=== PATIENT | female | born 1995 | race Caucasian/White ===

== ENCOUNTER 2024-09-30 13:18 | Outpatient (AMB) | payer MEDICAID, SELFPAY ==
[2024-09-30 13:39] VITALS: BP 129/80; PULSE 80; RESP 18; TEMP 36.2; O2SAT 99; BMI 46.0
--- NOTE | 2024-09-30 13:39 | AMB.GYNCLNOT ---
Vital Signs 09/30/24 13:39 Height 1.7 m Height Method Stated Weight 133.526 kg Weight Measurement Method Standing Scale BMI 46.0 BP 129/80 Blood Pressure Source Automatic Cuff Blood Pressure Location Left Upper Arm Position Sitting Respiration 18 Pulse 80 Pulse Source Monitor Temp 97.2 F Temp Source Oral Pulse Oximetry (%) 99 Oxygen Delivery Method Room Air Allergies/Home Meds Allergies & Medications Allergies No Known Allergies Allergy (Verified 09/30/24 13:41) Medication Reconciliation No Known Home Medications 09/30/24 [History Confirmed 09/30/24] Intake Visit Data Collection New Patient or Established: Established Patient (seen at [facility] within 3 years) Reason for Visit:: Establish care. Patient would like a Kyleena removal and reinsertion. Seen by Clinical Staff ONLY (RN/MA): No Trouble Lineman Required: No Do You Feel Safe at Home: Yes Authorities Contacted: N/A PCP or OBGYN visit in last 3 months: Yes Hx Now: No Are you currently on any form of Control: Yes Pain Present Currently: No Pain Scale Used: Edmonds-Delarosa/Numerical Pain scale:: 0 Smoking Status Smoking Status: Never smoker Perinatal Breastfeeding Assistant history Perinatal Breastfeeding Assistant History Menstrual regularity: regular Flow: normal Monthly: No Age at menarche: 13 Menopausal: No Currently sexually active: Yes Questionnaires Covid-19 Vaccine Questionnaire Has patient been vacinated for Covid-19 Have you been vacinated for Covid-19: Yes PHQ-9 PHQ-2 Over the last 2 weeks, how often have you been bothered by any of the following problems? 1. Little interest or pleasure in doing things: not at all 2. Feeling down, depressed, or hopeless: not at all Total score: 0 PHQ-9 3. Trouble falling or staying asleep, or sleeping too much: Not at all 4. Feeling tired or having little energy: Not at all 5. Poor appetite or overeating: Not at all 6. Feeling bad about yourself - or that you are a failure or have let yourself or your family down: Not at all 7. Trouble concentrating on things, such as reading the newspaper or watching television: Not at all 8. Moving or speaking so slowly that other people could have noticed? - Or the opposite - being so fidgety or restless that you have been moving around a lot more than usual: not at all 9. Thoughts that you would be better off or of hurting yourself in some way: Not at all Total score: 0 If you checked off any problems, how difficult have these problems made it for you to do your work, take care of things at home, or get along with other people?: not difficult at all Source: Developed by Drs. Calvin Trotter, Marquita Gruber, Otto Monson and colleagues, with an educational felipe from [employer]. 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 Tobacco History Smoking Status: Never smoker Domestic Abuse History Do You Feel Safe at Home: Yes Past Medical History Past Medical History Have you ever been diagnosed with any of the following: Stomache/Intestinal Problems Obesity: Yes Reproductive Problems Endometriosis: No Fibroids: No Genital Herpes: No Gonorrhea: No Pelvic Inflammatory Disease: No Polycystic Ovarian Syndrome: No Previous Pregnancies: No Syphilis: No Endocrine Problems Diabetes Mellitus Type 2: No Hyperthyroidism: No Hypothyroidism: No Psychologic Problems Depression: Yes Anxiety: Yes Other Problems Hospitalization: No Surgical History Additional Surgical History: No surgical history History of Present Illness HPI Narrative The patient is a 28-year-old G0 presents as a new patient to discuss her Kyleena IUD. She states she had her Kyleena IUD placed 5 years ago in [place] and it is due to be replaced. She had a Pap smear performed with Sonia at [facility] this year in July. Patient denies any problems with her IUD she does not have cycles on it. She is quite happy with her IUD and would like a replacement. She stated she did have some pain with insertion last time she has no significant past medical history or surgical history she has depression and anxiety and is on Lamictal 150 mg p.o. daily. Exam General General Appearance: alert, in no apparent distress, cooperative, well groomed and obese External exam: Present normal external exam Speculum exam: Present normal speculum exam and other (IUD strings visualized and approximately 1 to 2 inches outside her ectocervical os) Bimanual exam: Present normal bimanual exam and other (Bimanual exam limited by body habitus) Assessment & Plan Diagnosis / Problem List (1) IUD check up: Status: Acute Assessment and Plan: IUD is in the correct place. (2) General counseling and advice for contraceptive management: Status: Acute Assessment and Plan: Patient would like another Kyleena. It is due to be changed. We will authorize for a Kyleena IUD to be reinserted. Office Procedures OB Clinic LOC & Office Proc's Nursing/Assessment Patient Status: Established Patient OB Clinic Nursing Assessment: BP Monitoring, Medication Reconciliation, Update PMH in EMR and Vital Signs OB Clinic Coordination of Care: Consent,records obtained, informed consent, Education Simp Pt/Fam and Staff clarify orders Miscellaneous Interventions: Pelvic/Pap Smear Set up Established Patient Charge Established Patient Point Assignment: 95 Established Patient Point Charge: EP Level 3 (80-115)
== END 2024-09-30 14:10 | disposition home or self-care (01) ==
PROVIDERS: PCP Nurse Practitioner; Referring Provider Nurse Practitioner; Supervising Provider Obstetrics & Gynecology; Visit Provider Obstetrics & Gynecology
DX: Z30.431 Encounter for routine checking of intrauterine contraceptive device (principal)
CPT/HCPCS: 99213; G0463

== ENCOUNTER 2024-12-23 08:20 | Outpatient (AMB) | payer MEDICAID, SELFPAY ==
[2024-12-23 08:33] VITALS: BP 141/79; PULSE 91; RESP 18; TEMP 36.5; O2SAT 95; BMI 45.1
--- NOTE | 2024-12-23 08:33 | GYNCLNT_ITS ---
Vital Signs 12/23/24 08:33 Height 1.7 m Height Method Stated Weight 130.294 kg Weight Measurement Method Standing Scale BMI 45.1 BP 141/79 H Blood Pressure Source Automatic Cuff Blood Pressure Location Left Upper Arm Position Sitting Respiration 18 Pulse 91 Pulse Source Monitor Temp 97.7 F Temp Source Oral Pulse Oximetry (%) 95 Oxygen Delivery Method Room Air Allergies/Home Meds Allergies & Medications Allergies No Known Allergies Allergy (Verified 12/23/24 08:34) Medication Reconciliation No Known Home Medications 09/30/24 [History Confirmed 12/23/24] Intake Visit Data Collection New Patient or Established: Established Patient (seen at [facility] within 3 years) Reason for Visit:: KYLENNA INSERTION AND REMOVAL Seen by Clinical Staff ONLY (RN/MA): No Fishing Game Warden Required: No Do You Feel Safe at Home: Yes Authorities Contacted: N/A PCP or OBGYN visit in last 3 months: Yes Hx Now: No Are you currently on any form of Control: Yes Pain Present Currently: No Pain Scale Used: Edmonds-Delarosa/Numerical Pain scale:: 0 Smoking Status Smoking Status: Never smoker Septic Tank Service Technician history Septic Tank Service Technician History Menstrual regularity: irregular Flow: normal Monthly: No How many days does period last: 9 Age at menarche: 13 Currently sexually active: Yes CLIENT SUPPORT CONSULTANT: Past Medical History Past Medical History: No Hx Hypothyroidism, No Hx Hyperthyroidism, No Hx Diabetes Mellitus Type 2 and No Hx Polycystic Ovarian Syndrome Questionnaires Covid-19 Vaccine Questionnaire Has patient been vacinated for Covid-19 Have you been vacinated for Covid-19: Yes PHQ-9 PHQ-2 Over the last 2 weeks, how often have you been bothered by any of the following problems? 1. Little interest or pleasure in doing things: not at all 2. Feeling down, depressed, or hopeless: not at all Total score: 0 PHQ-9 3. Trouble falling or staying asleep, or sleeping too much: Not at all 4. Feeling tired or having little energy: Not at all 5. Poor appetite or overeating: Not at all 6. Feeling bad about yourself - or that you are a failure or have let yourself or your family down: Not at all 7. Trouble concentrating on things, such as reading the newspaper or watching television: Not at all 8. Moving or speaking so slowly that other people could have noticed? - Or the opposite - being so fidgety or restless that you have been moving around a lot more than usual: not at all 9. Thoughts that you would be better off or of hurting yourself in some way: Not at all Total score: 0 Source: Developed by Drs. Calvin Trotter, Marquita Gruber, Otto Monson and colleagues, with an educational felipe from [employer]. 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 She has had a kyleena in place for 5 years and denies any problems with it. She reports not having any pain, abnormal discharge, or menses on it. She read her consent and it was explained to her. She understands the risks of an IUD removal and reinsertion including infection, bleeding, explusion and uterine perforation. She understands if uterine perforation occurs, she will have to undergo a surgery to remove the IUD. All questions were answered and all consents were signed. Exam General Limitations: no limitations General Appearance: alert, in no apparent distress, cooperative and obese External exam: Present normal external exam Speculum exam: Present normal speculum exam Bimanual exam: Present other (uterus normal sized and retroverted. Adnexa nontender. Exam limited by body habitus) Office Procedures OB Clinic LOC & Office Proc's Nursing/Assessment Patient Status: Established Patient OB Clinic Nursing Assessment: Medication Reconciliation, Update PMH in EMR and Vital Signs OB Clinic Coordination of Care: Complex Care and Chronic Disease 1-5, Consent,records obtained, informed consent, Education Simp Pt/Fam, Lab and Imaging orders, Results/Orders obtained and Staff clarify orders Miscellaneous Interventions: Blood/Urine Collection Established Patient Charge Established Patient Point Assignment: 135 In Clinic Bedside tests Bedside HCG: Yes In Clinic Procedures INSERTION OF ANY IUD DEVICE: Yes REMOVAL OF ANY IUD DEVICE: Yes Results Urine HCG Urine HCG Negative Last Edit by Leticia Luke MA on 12/23/24 08:4 4 Assessment & Plan Diagnosis / Problem List (1) Encounter for IUD removal: Status: Acute (2) Encounter for insertion of Kyleena IUD: Status: Acute Assessment and Plan: The patient had a successful IUD removal and reinsertion. She was given a card with her IUD lot number and the date. She was told to refrain from intercourse and tampon use for two weeks and to follow up then for a string check. FACILITY DESIGNER: BC insert/removal Procedure Notes Consent obtained: yes-written and risks discussed Pre-op diagnosis general: Desires Kyleena removal and Reinsertion Post-op diagnosis procedure note: Same IUD type inserted: Kyleena IUD Lot and Exp: Lot#: Expiration date: Procedure Notes:: After obtaining informed consent, a pelvic exam was performed, the uterus was normal sized and retroverted. A speculum exam was performed. The cervix was prepped with betadine and the IUD strings visualized. The IUD strings were grasped with a ring forceps and the IUD removed in its entirety without difficulty. This was shown to the patient and discarded. A single tooth tenaculum was placed at the 12 o'clock position. A uterine sound was then used to measure the uterine cavity to the fundus. This measured 7 cm and was retroverted. A Kyleena IUD was then inserted to 7 cm and deployed without difficulty. The strings were kept long. All instrumentation was then removed from the patients vagina. The tenaculum site was noted to be hemostatic. The patient tolerated the procedure well. She was told to refrain from tampon use and intercourse for two weeks and to follow up then.
== END 2024-12-23 09:01 | disposition home or self-care (01) ==
LOC: HODSOBC 08:20
PROVIDERS: PCP Nurse Practitioner; Referring Provider Nurse Practitioner; Supervising Provider Obstetrics & Gynecology; Visit Provider Obstetrics & Gynecology
DX: Z30.433 Encounter for removal and reinsertion of intrauterine contraceptive device (principal)
CPT/HCPCS: 58300; 58301; 81025; J7296

== ENCOUNTER 2025-01-27 11:16 | Outpatient (AMB) | payer MEDICAID, SELFPAY ==
--- NOTE | 2025-01-27 11:37 | GYNCLNT_ITS ---
Vital Signs 01/27/25 11:38 Height 1.7 m Height Method Measured Weight 126.666 kg Weight Measurement Method Standing Scale BMI 43.8 BP 117/85 H Blood Pressure Source Automatic Cuff Blood Pressure Location Right Upper Arm Position Sitting Respiration 17 Pulse 88 Pulse Source Monitor Temp 97.7 F Temp Source Temporal Artery Scan Pulse Oximetry (%) 96 Oxygen Delivery Method Room Air Allergies/Home Meds Allergies & Medications Allergies No Known Allergies Allergy (Verified 01/27/25 11:38) Medication Reconciliation No Known Home Medications 09/30/24 [History Confirmed 01/27/25] Intake Visit Data Collection New Patient or Established: Established Patient (seen at [facility] within 3 years) Reason for Visit:: IUD CHECK Consent obtained for Telemed Visit: No Seen by Clinical Staff ONLY (RN/MA): No Do You Feel Safe at Home: Yes Authorities Contacted: N/A PCP or OBGYN visit in last 3 months: Yes Date of Last PCP or OBGYN visit: 12/23/24 Hx Now: No Are you currently on any form of Control: Yes (Has a Kyleena IUD in place since 12/23/2024) Pain Present Currently: No Pain Scale Used: Edmonds-Delarosa/Numerical Pain scale:: 0 Smoking Status Smoking Status: Never smoker Home Visit Field Care Manager history Home Visit Field Care Manager History Menstrual regularity: irregular Flow: light Monthly: Yes How many days does period last: 3 Age at menarche: 13 Menopausal: No Currently sexually active: Yes Additional comments: LMP: IRREGULAR SPOTTING\PERIODS [place] DISPATCH SUPERVISOR: Past Medical History Past Medical History: No Hx Hypothyroidism, No Hx Hyperthyroidism, No Hx Diabetes Mellitus Type 2 and No Hx Polycystic Ovarian Syndrome Questionnaires Covid-19 Vaccine Questionnaire Has patient been vacinated for Covid-19 Have you been vacinated for Covid-19: Yes PHQ-9 PHQ-2 Over the last 2 weeks, how often have you been bothered by any of the following problems? 1. Little interest or pleasure in doing things: not at all PHQ-9 3. Trouble falling or staying asleep, or sleeping too much: Not at all 4. Feeling tired or having little energy: Not at all 5. Poor appetite or overeating: Not at all 6. Feeling bad about yourself - or that you are a failure or have let yourself or your family down: Not at all 7. Trouble concentrating on things, such as reading the newspaper or watching television: Not at all 8. Moving or speaking so slowly that other people could have noticed? - Or the opposite - being so fidgety or restless that you have been moving around a lot more than usual: not at all 9. Thoughts that you would be better off or of hurting yourself in some way: Not at all If you checked off any problems, how difficult have these problems made it for you to do your work, take care of things at home, or get along with other people?: not difficult at all Source: Developed by Drs. Calvin Trotter, Marquita Gruber, Otto Monson and colleagues, with an educational felipe from [employer]. 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 I removed her Kyleena and replaced a Kyleena 12/23/2024. She had an earlier appointment for an IUD check, but had to cancel it due to work. She has no complaints with her IUD specifically no fevers, chills, heavy vaginal bleeding ,or pain. Exam Narrative Physical exam: Speculum exam is performed, IUD strings are visualized and about one inch outside her ectocervical os. General Limitations: no limitations General Appearance: alert, in no apparent distress, cooperative, healthy appearing and well groomed Office Procedures OB Clinic LOC & Office Proc's Nursing/Assessment Patient Status: Established Patient OB Clinic Nursing Assessment: Medication Reconciliation, Update PMH in EMR and Vital Signs OB Clinic Coordination of Care: Complex Care and Chronic Disease 1-5, Consent,records obtained, informed consent and Education Simp Pt/Fam Established Patient Charge Established Patient Point Assignment: 75 Established Patient Point Charge: EP Level 2 (40-75) Assessment & Plan Diagnosis / Problem List (1) IUD check up: Status: Acute Plan: Kyleena appears to be in the right place. It is okay to use tampons have intercourse and use this for contraception. Follow-up yearly for an annual exam. Patient was told how to check her strings. Additional Plan Follow Up: 1 Year
[2025-01-27 11:38] VITALS: BP 117/85; PULSE 88; RESP 17; TEMP 36.5; O2SAT 96; BMI 43.8
== END 2025-01-27 12:15 | disposition home or self-care (01) ==
LOC: HODSOBC 11:16
PROVIDERS: Supervising Provider Obstetrics & Gynecology; Visit Provider Obstetrics & Gynecology
DX: Z30.431 Encounter for routine checking of intrauterine contraceptive device (principal)
CPT/HCPCS: 99212; G0463